=== PATIENT | male | born 1990 | race Caucasian/White ===

== ENCOUNTER 2024-03-27 12:03 | Day surgery (SDC) | payer OTHER, SELFPAY ==
[2024-03-27] VITALS (13 sets, daily range): BP systolic 98–138; BP diastolic 62–77; PULSE 58–99; RESP 14–22; TEMP 36.4–36.9; O2SAT 94–97; BMI 24.3
--- NOTE | 2024-03-27 12:49 | CTR_ITS ---
PROCEDURE INFORMATION: Exam: CT Abdomen And Pelvis With Contrast Exam date and time: 03/27/2024 1:13 PM Age: 33 years old Clinical indication: Abdominal pain; Localized; Right lower quadrant (rlq); Additional info: Rlq pain, eval appendicitis TECHNIQUE: Imaging protocol: Computed tomography of the abdomen and pelvis with contrast. Radiation optimization: All CT scans at this facility use at least one of these dose optimization techniques: automated exposure control; mA and/or kV adjustment per patient size (includes targeted exams where dose is matched to clinical indication); or iterative reconstruction. Contrast material: OMNI 350; Contrast volume: 100 ml; Contrast route: INTRAVENOUS (IV); COMPARISON: No relevant prior studies available. RADIATION DOSE METRICS: Total DLP (mGy-cm): 465.9 FINDINGS: Lungs: Lung bases are clear. Liver: The liver is normal. Gallbladder and biliary ducts: The gallbladder is normal. There is no biliary dilation. Pancreas: The pancreas is unremarkable. Spleen: The spleen is unremarkable. Adrenal glands: The adrenal glands are unremarkable. Kidneys and ureters: The kidneys are unremarkable. No hydronephrosis or stones. No ureteral dilation. Stomach and bowel: The stomach is nondistended, limiting assessment of wall thickness. The small bowel is nondilated. The colon is unremarkable. Appendix: The appendix is dilated and fluid-filled measuring up to 11 mm at the tip. No appendicolith is visible. There is periappendiceal fat stranding and fascial thickening but no extraluminal gas or fluid collection. Intraperitoneal space: There is trace pelvic intraperitoneal free fluid. No intraperitoneal free air. Vasculature: There is mild aortic atherosclerotic disease. The portal, splenic and superior mesenteric veins are patent. Lymph nodes: There is no lymphadenopathy in the retroperitoneum, mesentery, pelvis or inguinal regions. Urinary bladder: The urinary bladder is nondistended, limiting assessment of wall thickness. Reproductive: The prostate and seminal vesicles are unremarkable. Bones/joints: Bones are unremarkable. Soft tissues: There is a small fat containing umbilical hernia. CT/CT abdomen pelvis w con* [id number] IMPRESSION: Acute appendicitis. No sign of perforation.
--- NOTE | 2024-03-27 13:11 | ED_ITS ---
HPI - Abdominal Pain 2 General: Chief Complaint: Abdominal Pain Stated Complaint: abd pain, referral from [facility] Time Seen by Provider: 03/27/24 12:32 History of Present Illness: 33 yo m reports vague discomfort/nausea in the middle of his abdomen yesterday which has progressed to RLQ pain today. It mainly hurts when he moves around or sits up. He's lost his appetite, last pos intake last night. No f/c. Denies health problems. He thought his stool might of had a little bit of mucus on it yesterday. Denies any urinary symptoms. No history of surgeries. Vapes but does not smoke. Associated Symptoms: Denies chills, diarrhea, dysuria, fever(s), syncope and vomiting Review of Systems 2 General: Reports: 10 or more systems reviewed and unremarkable except in HPI and below Const: Denies: fever(s), chills or body aches Card: Denies: chest pain, edema or syncope Resp: Denies: dyspnea or productive cough GI: Denies: vomiting or diarrhea : Denies: flank pain, dysuria or urinary frequency Musc: Denies: neck pain, back pain, extremity pain or extremity swelling Skin/Breast: Denies: rash or erythema Neuro: Denies: headache(s), numbness in extremities, weakness in extremities, lack of coordination or difficulty walking PFSH ED 2 PFSH: Social History Smoking and tobacco/nicotine status: former use of tobacco/nicotine Physical Exam 2 Const: COMMON NORMALS: no limitations, alert and well nourished EXAM LIMITATIONS: no altered mental status HENMT: COMMON NORMALS: normocephalic, atraumatic and external ears normal H EAD & SCALP: normocephalic and atraumatic EXTERNAL EAR: Yes external ears normal MOUTH: no muffled voice Neck/C-Spine: COMMON NORMALS: no JVD GENERAL: Yes normal visual inspection and Yes trachea midline Resp: COMMON NORMALS: normal respiratory effort, No use of accessory muscles and clear to auscultation bilaterally AUSCULTATION: clear to auscultation bilaterally Cardio: COMMON NORMALS: no JVD, regular rate and regular rhythm RATE: r egular rate RHYTHM: regular rhythm GI: COMMON NORMALS: Soft to palpation PALPATION: Yes Soft to palpation, Yes Tenderness to palpation present (GI) Details: RLQ, Yes Guarding due to palpation present (GI) in the RLQ and No Rebound tenderness present Extremity: COMMON NORMALS: normal to inspection Neuro: COMMON NORMALS: moves all extremities, no focal motor deficits and no sensory deficits noted SENSORIUM/ORIENTATION: Yes alert SPEECH: speech normal Psych: COMMON NORMALS: mental status grossly normal, Normal thought process present, cooperative, normal affect and speech normal SPEECH: Yes normal speech THOUGHT PROCESS: Normal thought process present Skin: COMMON NORMALS: no rashes or lesions noted, turgor normal and no jaundice GENERAL SKIN EXAM: no rashes or lesions noted and turgor normal Course 2 ED course: Dr Vega (gen surg money laundering investigator) consulted for uncomplicated acute appendicitis. Consultations: Consultation #1: Dr Vega --he's going to see patient and is likely going to OR for appendectomy Vital Signs: Vital signs: Vital Signs Temperature 98.0 F 03/27/24 12:42 Pulse Rate 58 L 03/27/24 13:32 Blood Pressure 108/69 03/27/24 13:32 Pulse Oximetry 94 03/27/24 13:32 Oxygen Delivery Me thod Room Air 03/27/24 13:32 MDM - Abdominal Pain Medical Decision Making Differential diagnosis includes appendicitis, colitis, diverticulitis, UTI, ureterolithiasis, adenitis, other. Patient has McBurney's point tenderness and classic migration from the periumbilical region to the right lower quadrant with loss of appetite. Will obtain a CT scan of the abdomen and pelvis. Lab Data 03/27/24 13:09 03/27/24 13:09 Labs/Radiology: Radiology Impressions Abdomen/Pelvis CT 03/27/24 12:49 IMPRESSION: Acute appendicitis. No sign of perforation. Laboratory Results WBC 12.73 10^3/uL (3.29-11.43) H 03/27/24 13:09 RBC 4.52 10^6/uL (3.85-5.65) 03/27/24 13:09 Hgb 13.40 g/dL (11.27-16.99) 03/27/24 13:09 Hct 40.0 % (37-53) 03/27/24 13:09 MCV 88.5 fl (82-101) 03/27/24 13:09 MCH 29.6 pg (27-33) 03/27/24 13:09 MCHC 33.5 g/dL (30-55) 03/27/24 13:09 RDW 13.2 % (12.1-15.1) 03/27/24 13:09 Plt Count 282 10^3/cmm (157-399) 03/27/24 13:09 MPV 9.3 fL (7.4-10.4) 03/27/24 13:09 Neut % (Auto) 79.8 % 03/27/24 13:09 Lymph % (Auto) 11.4 % 03/27/24 13:09 [place] % (Auto) 7.7 % 03/27/24 13:09 Eos % (Auto) 0.7 % 03/27/24 13:09 Baso % (Auto) 0.2 % 03/27/24 13:09 Neut # (Auto) 10.15 10^3/uL (1.8-7.7) H 03/27/24 13:09 Lymph # (Auto) 1.5 10^3/uL (0.8-4.8) 03/27/24 13:09 [place] # (Auto) 1.0 10^3/uL (0.2-0.9) H 03/27/24 13:09 Eos # (Auto) 0.1 10^3/uL (0.0-0.8) 03/27/24 13:09 Baso # (Auto) 0.0 10^3/uL (0.0-0.1) 03/27/24 13:09 Nucleated RBC % (auto) 0 % 03/27/24 13:09 Nucleated RBCs # 0.0 /100WBC 03/27/24 13:09 Sodium 137 mmol/L (136-145) 03/27/24 13:09 Potassium 3.8 mmol/L (3.5-5.1) 03/27/24 13:09 Chloride 102 mmol/L (98-107) 03/27/24 13:09 Carbon Dioxide 24 mmol/L (22-29) 03/27/24 13:09 Anion Gap 14.8 (5-19) 03/27/24 13:09 BUN 15 mg/dL (6-20) 03/27/24 13:09 Creatinine 0.8 mg/dL (0.7-1.2) 03/27/24 13:09 GFR Calculation 110.0 mL/min (90-130) 03/27/24 13:09 Glucose 85 mg/dL (65-115) 03/27/24 13:09 Calculated Osmolality 284 mOsm/kg (285-295) L 03/27/24 13:09 Calcium 8.8 mg/dL (8.5-10.5) 03/27/24 13:09 Total Bilirubin 1.2 mg/dL (0.15-1.2) 03/27/24 13:09 AST 10 U/L (0-40) 03/27/24 13:09 ALT 11 U/L (0-41) 03/27/24 13:09 Alkaline Phosphatase 80 U/L (40-130) 03/27/24 13:09 C-Reactive Protein 55.1 mg/L (0.0-4.9) H 03/27/24 13:09 Total Protein 6.9 g/dL (6.6-8.7) 03/27/24 13:09 Albumin 4.1 g/dL (3.5-5.2) 03/27/24 13:09 Globulin 2.8 g/dL (1.3-4.6) 03/27/24 13:09 All radiology interpretation(s) finalized by discharge ED provider radiology interpretation(s): EP Interp: acute uncomplicated appendicitis Discharge Plan Discharge Patient Disposition: Placed in Observation Clinical Impression: Acute appendicitis Qualifiers: Acute appendicitis type: with localized peritonitis Appendicitis gangrene presence: without gangrene Appendicitis perforation presence: without perforation Appendicitis abscess presence: without abscess Qualified Code(s): K 35.30 - Acute appendicitis with localized peritonitis, without perforation or gangrene Coding Level of Care Code ED Synthetic Resin Operator for Yue Monsivais
[2024-03-27 13:17] LABS: Basophils % 0.2 %; Eosinophils # 0.1 10^3/uL (0.0-0.8); Eosinophils % 0.7 %; Lymphocytes # 1.5 10^3/uL (0.8-4.8); Lymphocytes % 11.4 %; Mean Corpuscular HGB Conc 33.5 g/dL (30-55); Mean Corpuscular Hemoglobin 29.6 pg (27-33); Mean Corpuscular Volume 88.5 fl (82-101); Mean Platelet Volume 9.3 fL (7.4-10.4); Monocytes % 7.7 %; Neutrophils # 10.15 10^3/uL (1.8-7.7); Neutrophils % 79.8 %; Nucleated Red Blood Cells % 0 %; Platelet Count 282 10^3/cmm (157-399); Red Blood Count 4.52 10^6/uL (3.85-5.65); Red Cell Distribution Width 13.2 % (12.1-15.1); White Blood Count 12.73 10^3/uL (3.29-11.43)
[2024-03-27] MEDS: iohexol 350 mg/mL 500 mL Btl (per mL) IV (13:18)
[2024-03-27] MEDS: sodium chloride 0.9% 1,000 ML 999 ML IV (13:31)
[2024-03-27] MEDS: ondansetron 2 mg/ML SDV 2 mL 4 MG IVP (13:32)
[2024-03-27] MEDS: ketorolac 30 mg/mL INJ 15 MG IVP (13:32)
[2024-03-27 13:33] LABS: Alanine Aminotransferase 11 U/L (0-41); Albumin Level 4.1 g/dL (3.5-5.2); Alkaline Phosphatase 80 U/L (40-130); Anion Gap 14.8 (5-19); Aspartate Amino Transferase 10 U/L (0-40); Blood Urea Nitrogen 15 mg/dL (6-20); C Reactive Protein 55.1 mg/L (0.0-4.9); Calcium 8.8 mg/dL (8.5-10.5); Carbon Dioxide 24 mmol/L (22-29); Chloride 102 mmol/L (98-107); Creatinine Clr Calc Pharmacy 136.0705; Globulin 2.8 g/dL (1.3-4.6); Glucose 85 mg/dL (65-115); Osmolality Calculated 284 mOsm/kg (285-295); Potassium 3.8 mmol/L (3.5-5.1); Sodium 137 mmol/L (136-145); Total Bilirubin 1.2 mg/dL (0.15-1.2); Total Protein 6.9 g/dL (6.6-8.7)
--- NOTE | 2024-03-27 14:07 | P.CONIM_ITS ---
Providers/Reason For Consult 2 Consulting Physician/Specialty*: ravinder ramachandran MD general surgery Reason for Consult*: RLQ pain Requesting Physician: juliette becerra MD ER History of Present Illness History of Present Illness Tom Ott is a 33 year old male with 1 day history of periumbilical pain without F/C/S. He has elevated WBC 12k and CT c/w acute appendicitits. Review of Systems 2 Narrative: Constitutional: denies rigors, singnificant weight gain, increased appetite HEENT: denies chronic cough, blurry vision, excessive tearing, eye pain, flashing lights, odynophagia, painful mastication, change in voice, change in taste, chronic sore throat, hypersalivation Heart: denies racing heart, palpitations, othropnea, PND Lungs: denies hemoptysis, pain with deep inspiration, chronic bronchitis GI: denies hematemesis, hematochezia, dysphagia, tenesmus : denies polyuria, hematuria, painful micturation Musculoskeletal: denies hemarthrosis, Muscle wasting, change in amubation Neuro: denies new onset syncope, dysesthesia, dysequilibrium, ptosis eyelid or face SKin: denies new onset hyperalgia, new rash new cyanosis Endocrine: denies new polyuria, polydipsia, polyphagia, heat intolerance, excessive energy Hem/Onc: denies new petechiae, swollen glands, new excessive epstaxis Psych: denies racing thought Medications/Allergies Home Medications Medication Instructions Recorded Confirmed Last Taken Type No Known Home Medications 03/27/24 03/27/24 Unknown History Allergies Allergy/AdvReac Type Severity Reaction Status Date / Time No Known Allergies Allergy Verified 03/27/24 12:49 PFSH Acute 2 PFSH: Social History Smoking and tobacco/nicotine status: former use of tobacco/nicotine Vitals/I&O/Wt Last Vital Signs Temp 98.0 F 03/27/24 12:42 Pulse 58 L 03/27/24 13:32 BP 108/69 03/27/24 13:32 Pulse Ox 94 03/27/24 13:32 O2 Del Method Room Air 03/27/24 13:32 Weight last 48 hrs Weight 170 lb Physical Exam 2 Narrative: Patient is a well developed well nourished and in NAD and is afebrile with vitals stable and is answering questions appropriately with a normal affect and is alert and oriented x3 HEENT: normocephalic with normal external ears and nonicteric, oral mucosa moist and dentition normal for age, trachea midline with no large masses visualized Heart: RRR, no gallops murmurs or rubs, normal PMI with no thrills Lungs: normal excursions, no loud audible wheezing, no subcutaneous emphysema Abdomen: nondistended, no gross hepatosplenomegaly, no masses, no rigidity or rebound, no loud borborygmi, tender over McBurney's Neuro: nonfocal, LIU, grossly normal sensation Musculoskeletal: good muscle tone, no fasciculations, normal gait Skin: pink warm and dry with no rashes or ecchymosis Vascular: good radial pulses, no ulceration, less than 2 second capillary refill in hand : deferred Data 03/27/24 13:09 03/27/24 13:09 A&P Assessment and plan (1) Acute appendicitis: Qualifiers: Acute appendicitis type: with localized peritonitis Appendicitis abscess presence: without abscess Appendicitis gangrene presence: without gangrene Appendicitis perforation presence: without perforation Qualified Code(s): K35.30 - Acute appendicitis with localized peritonitis, without perforation or gangrene Plan Patient understands risks, benefits and alternatives to surgery and wishes to proceed with lap appy. Risks include bleeding, infection, cardiopulmonary problems, normal appendix, leakage, injury to surrounding structures, more surgery, poor cosmesis, missed lesion. Coding Level of Care Code 00621 Diagnoses Acute appendicitis K35.30 Acute appendicitis type: with localized peritonitis Appendicitis abscess presence: without abscess Appendicitis gangrene presence: without gangrene Appendicitis perforation presence: without perforation
[2024-03-27] MEDS: piperacillin-tazobactam 4.5 GM in sodium chloride 0.9% (plus) 50 ML IV (14:11)
[2024-03-27 14:17] LABS: Blood Urine 2+ (Negative); Glucose Urine UA Norm (Normal); Ketones Urine 2+ (Negative); Nitrate Urine Positive (Negative); Protein Urine 1+ (Negative); Specific Gravity, Urine 1.005 (1.005-1.030); Urine Appearance Clear (CLEAR); Urine Color Yellow (Yellow); pH Urine 5 (5-7)
[2024-03-27 14:18] LABS: Add Urine Microscopic? YES; Bacteria Urine TRACE /hpf; Bilirubin Urine Neg (Negative); Leukocyte Esterase Urine Negative (Negative); RBC Urine 0-4 /hpf (0-2); Urobilinogen Urine 1 mg/dL (Negative)
[2024-03-27 14:19] LABS: Add Urine Culture? Yes
--- NOTE | 2024-03-27 14:39 | ANES.PREANE2 ---
Pre-Anesthetic Assessment Height/Weight: Height 1.78 m Weight 77.111 kg Temp Pulse BP Pulse Ox O2 Del Method 98.0 F 58 L 108/69 94 Room Air 03/27/24 12:42 03/27/24 13:32 03/27/24 13:32 03/27/24 13:32 03/27/24 13:32 Social Tobacco and No alcohol Exam alert, oriented x 3, clear to auscultation bilaterally and regular rate & rhythm Airway Submandibular: within normal limits Cervical ROM: within normal limits Mallampati: Class II History/ROS No significant history except as noted Anesthetic Plan ASA status: 2E Anesthesia: General Medications/Allergies Home Medications Medication Instructions Recorded Confirmed Last Taken Type No Known Home Medications 03/27/24 03/27/24 Unknown History Allergies Allergy/AdvReac Type Severity Reaction Status Date / Time No Known Allergies Allergy Verified 03/27/24 12:49 [facility] Anesthesia Social History Smoking and tobacco/nicotine status: former use of tobacco/nicotine Data Anesthesia 03/27/24 13:09 03/27/24 13:09 Short CBC 03/27/24 Range/Units 13:09 WBC 12.73 H (3.29-11.43) 10^3/uL Hgb 13.40 (11.27-16.99) g/dL Hct 40.0 (37-53) % MCV 88.5 (82-101) fl Plt Count 282 (157-399) 10^3/cmm Neut % (Auto) 79.8 % Neut # (Auto) 10.15 H (1.8-7.7) 10^3/uL BMP 03/27/24 13:09 Sodium 137 Potassium 3.8 Chloride 102 Carbon Dioxide 24 BUN 15 Creatinine 0.8 Glucose 85 Calcium 8.8 Liver Function 03/27/24 Range/Units 13:09 Total Bilirubin 1.2 (0.15-1.2) mg/dL AST 10 (0-40) U/L ALT 11 (0-41) U/L Alkaline Phosphatase 80 (40-130) U/L Albumin 4.1 (3.5-5.2) g/dL Urine 03/27/24 Range/Units 14:03 Urine Color Yellow (Yellow) Urine Appearance Clear (CLEAR) Urine pH 5 (5-7) Ur Specific [place] 1.005 (1.005-1.030) Urine Protein 1+ H (Negative) Urine Glucose (UA) Norm (Normal) Urine Ketones 2+ H (Negative) Urine Nitrate Positive A (Negative) Urine Bilirubin Neg (Negative) Ur Leukocyte Esterase Negative (Negative) Urine RBC 0-4 H (0-2) /hpf Urine WBC None (0-5) /hpf Coags 03/27/24 13:09 C-Reactive Protein 55.1 H Cardiac Studies: No Data to Display
[2024-03-27] MEDS: ciprofloxacin 400 MG/200 ML PREMIX 200 MG IV (14:45)
--- NOTE | 2024-03-27 15:36 | PM.DCS ---
Discharge Providers Date of Admission: 03/27/24 Date of Discharge: March 27, 2024 Attending Provider at Admission: Gurmeet Vega MD general surgery Attending Provider at Discharge: Gurmeet Vega MD general surgery Diagnoses at Discharge Discharge Diagnosis (1) Acute appendicitis: Status: Acute Qualifiers: Acute appendicitis type: with localized peritonitis Appendicitis abscess presence: without abscess Appendicitis gangrene presence: without gangrene Appendicitis perforation presence: without perforation Qualified Code(s): K35.30 - Acute appendicitis with localized peritonitis, without perforation or gangrene Other Information Additional DC diagnoses/information: acute appendicitis Reason for Visit Reason for Visit: abd pain, referral from [facility] Brief History: Less than 1 day history of periumbilical and RLQ pain associated with nausea with elevated WBC 12k and CT c/w acute appendicitis. Hospital Course Hospital Course Patient was admitted and had lap appy. The appendix was found to be retrocecal and had to be freed up with lysis of adhesions here and distal ileum. An incarcerated small umbilical hernia with preperitoneal fat stuck in sac was freed and and repaired primarily with interrupted sutures. Postop he did well and was ambulating, voiding and tolerating pain. Dressings were clean and dry. Physical Exam Narrative: Patient is a well developed well nourished and in NAD and is afebrile with vitals stable and is answering questions appropriately with a normal affect and is alert and oriented x3 HEENT: normocephalic with normal external ears and nonicteric, oral mucosa moist and dentition normal for age, trachea midline with no large masses visualized Heart: RRR, no gallops murmurs or rubs, normal PMI with no thrills Lungs: normal excursions, no loud audible wheezing, no subcutaneous emphysema Abdomen: nondistended, no gross hepatosplenomegaly, no masses, no rigidity or rebound, no loud borborygmi Neuro: nonfocal, LIU, grossly normal sensation Musculoskeletal: good muscle tone, no fasciculations, normal gait Skin: pink warm and dry with no rashes or ecchymosis Vascular: good radial pulses, no ulceration, less than 2 second capillary refill in hand : deferred Discharge Data Studies Completed and Pending Completed Studies During Hospitalization Category Date Time Status CT abdomen pelvis w con* [id number] Stat Cat Scan 03/27/24 12:49 Completed Pending at discharge Category Date Time Status Urine Culture Stat Lab 03/27/24 14:03 Received Radiology Impressions Abdomen/Pelvis CT 03/27/24 12:49 IMPRESSION: Acute appendicitis. No sign of perforation. ADDENDUM: 03/27/24 0412 THIS REPORT CONTAINS FINDINGS THAT MAY BE CRITICAL TO PATIENT CARE. The findings and recommendations were personally verbally communicated via telephone conference with HALEIGH CASTRO at 2:02 PM CDT on 03/27/2024. The findings were acknowledged and understood. Laboratory Results WBC 12.73 10^3/uL (3.29-11.43) H 03/27/24 13:09 RBC 4.52 10^6/uL (3.85-5.65) 03/27/24 13:09 Hgb 13.40 g/dL (11.27-16.99) 03/27/24 13:09 Hct 40.0 % (37-53) 03/27/24 13:09 MCV 88.5 fl (82-101) 03/27/24 13:09 MCH 29.6 pg (27-33) 03/27/24 13:09 MCHC 33.5 g/dL (30-55) 03/27/24 13:09 RDW 13.2 % (12.1-15.1) 03/27/24 13:09 Plt Count 282 10^3/cmm (157-399) 03/27/24 13:09 MPV 9.3 fL (7.4-10.4) 03/27/24 13:09 Neut % (Auto) 79.8 % 03/27/24 13:09 Lymph % (Auto) 11.4 % 03/27/24 13:09 [place] % (Auto) 7.7 % 03/27/24 13:09 Eos % (Auto) 0.7 % 03/27/24 13:09 Baso % (Auto) 0.2 % 03/27/24 13:09 Neut # (Auto) 10.15 10^3/uL (1.8-7.7) H 03/27/24 13:09 Lymph # (Auto) 1.5 10^3/uL (0.8-4.8) 03/27/24 13:09 [place] # (Auto) 1.0 10^3/uL (0.2-0.9) H 03/27/24 13:09 Eos # (Auto) 0.1 10^3/uL (0.0-0.8) 03/27/24 13:09 Baso # (Auto) 0.0 10^3/uL (0.0-0.1) 03/27/24 13:09 Nucleated RBC % (auto) 0 % 03/27/24 13:09 Nucleated RBCs # 0.0 /100WBC 03/27/24 13:09 Sodium 137 mmol/L (136-145) 03/27/24 13:09 Potassium 3.8 mmol/L (3.5-5.1) 03/27/24 13:09 Chloride 102 mmol/L (98-107) 03/27/24 13:09 Carbon Dioxide 24 mmol/L (22-29) 03/27/24 13:09 Anion Gap 14.8 (5-19) 03/27/24 13:09 BUN 15 mg/dL (6-20) 03/27/24 13:09 Creatinine 0.8 mg/dL (0.7-1.2) 03/27/24 13:09 GFR Calculation 110.0 mL/min (90-130) 03/27/24 13:09 Glucose 85 mg/dL (65-115) 03/27/24 13:09 Calculated Osmolality 284 mOsm/kg (285-295) L 03/27/24 13:09 Calcium 8.8 mg/dL (8.5-10.5) 03/27/24 13:09 Total Bilirubin 1.2 mg/dL (0.15-1.2) 03/27/24 13:09 AST 10 U/L (0-40) 03/27/24 13:09 ALT 11 U/L (0-41) 03/27/24 13:09 Alkaline Phosphatase 80 U/L (40-130) 03/27/24 13:09 C-Reactive Protein 55.1 mg/L (0.0-4.9) H 03/27/24 13:09 Total Protein 6.9 g/dL (6.6-8.7) 03/27/24 13:09 Albumin 4.1 g/dL (3.5-5.2) 03/27/24 13:09 Globulin 2.8 g/dL (1.3-4.6) 03/27/24 13:09 Urine Color Yellow (Yellow) 03/27/24 14:03 Urine Appearance Clear (CLEAR) 03/27/24 14:03 Urine pH 5 (5-7) 03/27/24 14:03 Ur Specific [place] 1.005 (1.005-1.030) 03/27/24 14:03 Urine Protein 1+ (Negative) H 03/27/24 14:03 Urine Glucose (UA) Norm (Normal) 03/27/24 14:03 Urine Ketones 2+ (Negative) H 03/27/24 14:03 Urine Blood 2+ (Negative) H 03/27/24 14:03 Urine Nitrate Positive (Negative) A 03/27/24 14:03 Urine Bilirubin Neg (Negative) 03/27/24 14:03 Urine Urobilinogen 1 mg/dL (Negative) H 03/27/24 14:03 Ur Leukocyte Esterase Negative (Negative) 03/27/24 14:03 Urine RBC 0-4 /hpf (0-2) H 03/27/24 14:03 Urine WBC None /hpf (0-5) 03/27/24 14:03 Ur Squamous Epith Cells None /hpf (0-5) 03/27/24 14:03 Amorphous Sediment Not Reportable 03/27/24 14:03 Urine Bacteria Trace /hpf (NONE) 03/27/24 14:03 Vitals Last Vital Signs Temp 98.5 F 03/27/24 15:10 Pulse 63 03/27/24 15:10 Resp 18 03/27/24 15:10 BP 124/70 03/27/24 15:10 Pulse Ox 97 03/27/24 15:10 O2 Del Method Room Air 03/27/24 13:32 Discharge Plan Discharge Patient Disposition: Home Condition: Stable Prescriptions: New hydrocodone-acetaminophen 7.5-325 mg tablet 1 tab PO Q6H PRN (Reason: pain) Qty: 16 0RF Rx Instructions: do not drink or drive while on this medication ondansetron 4 mg tablet,disintegrating 4 mg PO Q8H 1 Days Qty: 3 0RF Rx Instructions: for nausea ciprofloxacin HCl 500 mg tablet 500 mg PO Q12H Qty: 20 0RF metronidazole 500 mg tablet 500 mg PO Q8H Qty: 30 0RF Discharge Orders: Discharge Order (Routine); Ordered 03/27/24 Ordered By: Armando Vega Referrals: Kalyn Milligan LPC [Family Provider] - Armando Vega MD [Physician] - 1 week (wound check and path results) Discharge Diet: Usual diet Discharge Activity: Limit activity as instructed Patient Instructions: Acute Wound Care (DC), Post Anesthesia Care Activity Restrictions/Additional Instructions: Do not lift over 5 pounds for 2 weeks then not to lift over 20 pounds for two more weeks. May shower but no bath/pool/mesa for a month. Call for increased pain, nausea, problems with voiding/stools. Call for signs or symptoms of wound infection including increased redness/warmth/drainage/swelling. Call for fever over 101.5F. May replace dressings if get wet and place new dry bandages on it. Do not drink or drive if taking narcotics. May apply ice bag on wounds for comfort as needed. RTC in a week for wound check and to go over path results. Discharge Attestations Time Spent in Discharge Care*: less than 30 min Quality Metrics Clinical Quality Measures [ No reported AMI, CVA or VTE this stay] Coding Level of Care Code Acute Code for [facility] Fwd Diagnoses Acute appendicitis K35.30 Acute appendicitis type: with localized peritonitis Appendicitis abscess presence: without abscess Appendicitis gangrene presence: without gangrene Appendicitis perforation presence: without perforation
--- NOTE | 2024-03-27 15:38 | PM.OP ---
Operative Report Date of procedure: March 27, 2024 Pre-op diagnosis: RLQ pain Post-op diagnosis: same, intestinal adhesions and incarcerated umbilical hernia Procedure done: laparoscopic retrocecal appendectomy, lysis of adhesions, incarcerated umbilical hernia repair Pathology: appendix sent to path and for culture and sensitivity Surgeon: Armando Vega MD Anesthesia: General Estimated blood loss: minimal Brief History: Patient with RLQ pain and signs/symptoms c/w acute appendicitis. She understands risks, benefits and alternatives to surgery to remove appendix and wishes to proceed. Risks include bleeding, infection, cardiopulmonary problems, normal appendix, leakage, missed lesion, injury to surrounding structures, more surgery and wishes to proceed. Procedure: After adequate anesthesia the abdomen was prepped and draped in a sterile manner. A hong catheter was inserted preop to prevent injury to bladder during the case and will be removed postoperatively. The abdominal cavity was entered and pneumoperitoneum was achieved. Ports were placed at the umbilicus, the LUQ and the suprapubic area. Through these instruments were placed. Patient was placed in reverse trendelenberg position with right side up. The appendix was identified. It was retrocecal and along lateral gutter with tip most cephalad. An avascular opening was made in the mesoappendix at the appendix base. The appendix was divided here with an endo CHICA. The appendix was adherent posteriorly and laterally especially near tip. The appendix had to be freed up sharply. The mesoappendix was divided with the ligasure. The appendix was placed in an endo bag and removed and sent to path and for culture and sensitivity. Area was copiously irrigated out with saline and no significant bleeding was seen. The distal ileum was adherent to the upper part of the pelvis posteriorly and starting to kink and obstruct the bowel here. This was freed up sharply. The distal 2 feet of small bowel was inspected and was normal. Port sites were anesthetized with local and removed under direct vision. No active bleeding was noted from the peritoneal side. An incarcerated umbilical hernia with preperitoneal fat stuck in the sac was freed up sharply and fat pushed back into abdominal cavity. The defect was 2-3 cm in size. Fascia at umbilicus was closed with O vicryl sutures. Skin was closed with dermal monocryl and aseptically dressed. Patient tolerated procedure well and taken to recovery room in stable condition.
[2024-03-27] MEDS: lidocaine-epi 2% PF 1:200,000 20 mL SDV XX (16:59)
[2024-03-27] MEDS: HYDROcodone-acetaminophen 7.5-325 mg Tablet 1 TAB PO (18:25)
--- NOTE | 2024-03-28 05:39 | ANE.PACU2 ---
Inpatient post-anesthesia follow up: Vital signs: Temperature 98.2 F Pulse Rate 80 Respiratory Rate 18 Blood Pressure 119/67 Pulse Oximetry 96 Oxygen Delivery Me thod Room Air Oxygen Flow Rate Fraction of Inspir ed Oxygen Hydration adequate: Yes Nausea and vomiting: No Pain level: 3 Mental status: Baseline
== END 2024-03-27 18:36 | disposition home or self-care (01) ==
LOC: ER 14:07 → OR 14:20
PROVIDERS: Emergency Provider Emergency Medicine; Family Provider Counselor Professional; Visit Provider Specialist
PROC: 0DTJ4ZZ Resection of Appendix, Percutaneous Endoscopic Approach (ICD-10-PCS; CPT 44970; principal; 2024-03-27 15:00)
DX: K35.30 Acute appendicitis with localized peritonitis, without perforation or gangrene (principal); Z87.891 Personal history of nicotine dependence; K66.0 Peritoneal adhesions (postprocedural) (postinfection); K42.0 Umbilical hernia with obstruction, without gangrene
CPT/HCPCS: 44970; 49592; 51702; 74177; 80053; 81001; 85025; 86140; 87070; 87075; 87077; 87086; 87176; 87205; 88304; J0330; J0744; J1100; J1885; J2001; J2250; J2371; J2405; J2543; J2704; J3010; J3490; J7030; Q9967

== ENCOUNTER 2024-10-03 17:27 | Emergency (ER) | payer OTHER, SELFPAY ==
[2024-10-03 17:33] VITALS: BP 110/62; PULSE 62; RESP 17; TEMP 36.5; O2SAT 95; BMI 25.1
--- NOTE | 2024-10-03 17:59 | W.ED.EYEPROB ---
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 He felt like some of the concrete dust/dirt got into his eye. He irrigated at home but feels like something is still in there. He is not had any discharge. No changes in his vision. chief complaint: foreign body Onset (ago): hour(s) Onset description: sudden Duration: constant Location: left eye Eye Symptoms: foreign body sensation Place: work Severity: mild Associated symptoms: Reports no associated symptoms Treatments Prior to Arrival: irrigated eye Related Data Previous Rx's Medication Instructions Recorded ciprofloxacin HCl 500 mg tablet 500 mg PO Q12H #20 tabs 03/27/24 hydrocodone 7.5 mg-acetaminophen 1 tab PO Q6H PRN pain #16 tabs 03/27/24 325 mg tablet metronidazole 500 mg tablet 500 mg PO Q8H #30 tabs 03/27/24 Allergies Allergy/AdvReac Type Severity Reaction Status Date / Time No Known Allergies Allergy Verified 04/15/24 09:58 Review of Systems Eyes: Reports: eye discomfort and other (fb sensation L eye); Denies: change in vision, blurry vision, blind spots, photophobia, yellow eyes, floaters or seeing flashes PFS ED PFSH: Social History Smoking and tobacco/nicotine status: current every day tobacco/nicotine user Physical Exam Const: COMMON NORMALS: no acute distress, average body habitus, patient oriented x3, no limitations, healthy appearing, alert and well nourished Eye: COMMON NORMALS: Equal, round and reactive pupils present, EOMs intact bilaterally and conjunctivae normal GENERAL EYE: appearance normal, both eyes and all related structures and normal light reflex VISUAL ACUITY: Yes acuity normal ALIGNMENT: Yes alignment normal PERIORBITAL: periorbital findings normal EYELID: eyelids normal CONJUNCTIVA: Yes conjunctivae normal SCLERA: sclerae normal CORNEA: Yes fluorescein used (normal fluorescein stain exam; no abrasion) PUPIL: Yes Equal, round and reactive pupils present DIRECT OPHTHALMOSCOPY: Yes normal light reflex OTHER: few flecks of concrete dirt irrigated out/swept out with moist qtip Neuro: COMMON NORMALS: patient oriented x3 SENSORIUM/ORIENTATION: Yes alert Course Vital Signs: Vital signs: Vital Signs Temperature 97.7 F 10/03/24 17:33 Pulse Rate 62 10/03/24 17:33 Respiratory Rate 17 10/03/24 17:33 Blood Pressure 110/62 10/03/24 17:33 Pulse Oximetry 95 10/03/24 17:33 Oxygen Delivery Me thod Room Air 10/03/24 17:33 MDM - Eye Problem Medical Decision Making Patient had a few flecks of concrete dirt irrigated from his eye. He states the eye feels better. Fluorescein stain examination performed and no abrasions visualized. He can continue irrigation at home. Return/follow up precautions discussed. No radiology studies performed this visit Discharge Plan Discharge Patient Disposition: Home Clinical Impression: Foreign body of left eye Qualifiers: Encounter type: initial encounter Qualified Code(s): T15.92XA - Foreign body on external eye, part unspecified, left eye, initial encounter Condition: Stable Prescriptions: No Action hydrocodone-acetaminophen 7.5-325 mg tablet 1 tab PO Q6H PRN (Reason: pain) Qty: 16 0RF Rx Instructions: do not drink or drive while on this medication ciprofloxacin HCl 500 mg tablet 500 mg PO Q12H Qty: 20 0RF metronidazole 500 mg tablet 500 mg PO Q8H Qty: 30 0RF Discharge Orders: Discharge ED (Routine); Ordered 10/03/24 Ordered By: Radha Grace Referrals: Kalyn Milligan, [employer] [Family Provider] - Patient Instructions: Foreign Body - Eye, Eye Foreign Body (ED) Activity Restrictions/Additional Instructions: As we discussed, continue to irrigate the eye at home as much as possible over the next 48 hours. You may follow-up with primary care or return to the emergency department for severe eye pain, redness, discharge, change or loss of vision, or any other concerns you may have. 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
[2024-10-03] MEDS: fluorescein 1 mg Strip EYE-LEFT (18:07)
[2024-10-03 18:31] VITALS: BP 113/63; PULSE 68; O2SAT 96
== END 2024-10-03 18:34 | disposition home or self-care (01) ==
PROVIDERS: Emergency Provider Physician Assistant; Family Provider Counselor Professional
DX: T15.92XA Foreign body on external eye, part unspecified, left eye, initial encounter (principal); W44.9XXA Unspecified foreign body entering into or through a natural orifice, initial encounter; Z72.0 Tobacco use
CPT/HCPCS: 99283